=== PATIENT | female | born 1975 | race Two or more races ===

== ENCOUNTER 2021-01-28 14:36 | Inpatient (IN) | payer BC, OTHER ==
[~2021-01-28] VITALS: Ht 172.7 cm; Wt 104.0 kg
[2021-01-28] MEDS ORDERED: methylPREDNISolone SOD SUCC 125 MG/2 ML VL IV ONE (15:00)
[2021-01-28 17:08] LABS: Basophils # (auto) 0 10 ^3/uL (0-0.2); Basophils % (auto) 0.2 % (0.0-2.0); Eosinophils # (auto) 0 10 ^3/uL (0-0.8); Eosinophils % (auto) 0.1 % (0.0-7.0); Hematocrit 35.7 % (36.0-46.0); Hemoglobin 12.5 g/dL (12.2-16.2); Lymphocytes # (auto) 1.6 10 ^3/uL (0.4-5.4); Lymphocytes % (auto) 12.4 % (10.0-50.0); Mean Corpuscular Hemoglobin 29.1 pg (28.0-32.0); Mean Corpuscular Hgb Conc. 34.9 g/dL (32.0-36.0); Mean Corpuscular Volume 83.3 fL (80.0-100.0); Monocytes # (auto) 0.7 10 ^3/uL (0-1.3); Monocytes % (auto) 5.6 % (0.0-12.0); Neutrophils # (auto) 10.2 10 ^3/uL (1.6-8.6); Neutrophils % (auto) 81.7 % (37.0-80.0); Nucleated Red Blood Cells % 0.1 %; Red Blood Cells 4.29 10^6/uL (4.0-5.20); Red Cell Distribution Width 13.5 % (11.8-14.3); White Blood Cell 12.6 10^3/uL (4.4-10.8)
[2021-01-28 17:17] LABS: Alanine Aminotransferase 65 U/L (13-56); Albumin 3.2 g/dL (3.4-5.0); Anion Gap 11 (5-15); Aspartate Aminotransferase 83 U/L (15-37); BUN/Creatinine Ratio 9.2; Blood Urea Nitrogen 8 mg/dL (7-18); Calcium 7.6 mg/dL (8.5-10.1); Carbon Dioxide 22 mmol/L (21-32); Chloride 98 mmol/L (98-107); GFR African American 90 mL/min; GFR Non-African American 74 mL/min; Glucose 125 mg/dL (74-106); Magnesium 1.9 mg/dL (1.6-2.6); Potassium 3.6 mmol/L (3.5-5.1); Sodium 131 mmol/L (136-145)
[2021-01-28 17:26] LABS: Alkaline Phosphatase 118 U/L (45-117); Bilirubin, Total 0.4 mg/dL (0.2-1.0); Total Protein 8.2 g/dL (6.4-8.2)
[2021-01-28] MEDS ORDERED: NITROGLYCERIN 0.4 MG SL TAB SL PRN (19:45)
[2021-01-28] MEDS ORDERED: ACETAMINOPHEN 500 MG TAB PO PRN (19:45)
[2021-01-28] MEDS ORDERED: REMDESIVIR PER PHARMACY 0 ML IV SCH (19:45)
[2021-01-28] MEDS ORDERED: ONDANSETRON HCL 4 MG/2 ML VIAL IV PRN (19:45)
[2021-01-28] MEDS ORDERED: MORPHINE SULF INJ 2 MG/ML SYRINGE 1ML IV PRN (19:45)
[2021-01-28] MEDS ORDERED: FUROSEMIDE 20 MG/2 ML VIAL IV ONE (20:00)
[2021-01-28] MEDS: cefTRIAXone 1GM/50ML D5W 50 ML IV SCH (20:28)
[2021-01-28] MEDS: ASCORBIC ACID 1,000 MG TAB PO SCH (20:29)
[2021-01-28] MEDS: ZINC SULFATE 220mg CAP or TAB PO SCH (20:29)
[2021-01-28] MEDS: CHOLECALCIFEROL (VITD3) 2,000 UNIT CAP/TAB PO SCH (20:29)
[2021-01-28] MEDS ORDERED: AZITHROMYCIN 500MG/ 250ML 250 ML IV SCH (20:30)
[2021-01-28] MEDS ORDERED: REMDESIVIR 200 MG in NS 210ml LOADING DOSE ADULT IV ONE (20:30)
[2021-01-28] MEDS: APIXABAN 5 MG TAB PO SCH (22:00)
[2021-01-28] MEDS: ALBUTEROL SULF HFA 90MCG INH 200DOSE IN PRN (22:04)
[2021-01-28] MEDS: BUDESONIDE (INHALATION) 180 MCG IH IN SCH (22:04)
[2021-01-28 22:30] VITALS: BP 139/79
[2021-01-28 23:35] VITALS: BP 133/76
[2021-01-29] MEDS: AZITHROMYCIN 500MG/ 250ML 250 ML IV SCH ×2 (00:15→10:12)
[2021-01-29] MEDS ORDERED: METF-370 PO (01:12)
[2021-01-29] MEDS ORDERED: ROSU10TA16 PO (01:12)
[2021-01-29] MEDS ORDERED: LOSA-69 PO (01:12)
[2021-01-29] MEDS ORDERED: AMLO-489 PO (01:12)
[2021-01-29] MEDS ORDERED: DEXTROSE (50%) 50ML SYRG IV PRN (02:00)
[2021-01-29 05:00] VITALS: BP 127/74
[2021-01-29] MEDS: ACCU-CHEK COMFORT CURVE STRIP VI SCH ×4 (06:21→23:45)
[2021-01-29] MEDS: InsuLIN REG 1unit/0.01ml Soln (100units/ml) SC SCH ×4 (06:24→23:49)
[2021-01-29 07:25] LABS: Potassium 3.9 mmol/L (3.5-5.1)
[2021-01-29 07:35] LABS: Albumin 2.7 g/dL (3.4-5.0); BUN/Creatinine Ratio 12.1; Bilirubin, Total 0.3 mg/dL (0.2-1.0)
[2021-01-29 08:00] VITALS: BP 130/73
[2021-01-29] MEDS: BUDESONIDE (INHALATION) 180 MCG IH IN SCH ×2 (08:14→22:29)
[2021-01-29] MEDS: ALBUTEROL SULF HFA 90MCG INH 200DOSE IN PRN ×2 (08:14→22:29)
[2021-01-29 09:00] VITALS: BP 130/73
[2021-01-29] MEDS: cefTRIAXone 1GM/50ML D5W 50 ML IV SCH (09:58)
[2021-01-29] MEDS: APIXABAN 5 MG TAB PO SCH ×2 (10:00→22:00)
[2021-01-29] MEDS: DexAMETHasone SOD PHOS 10MG/1ML VIAL INJ IV SCH (10:12)
[2021-01-29] MEDS: ZINC SULFATE 220mg CAP or TAB PO SCH (10:13)
[2021-01-29] MEDS: CHOLECALCIFEROL (VITD3) 2,000 UNIT CAP/TAB PO SCH (10:14)
[2021-01-29] MEDS: ASCORBIC ACID 1,000 MG TAB PO SCH (10:14)
[2021-01-29] MEDS: IVERMECTIN 3 MG TAB PO SCH (10:14)
[2021-01-29 13:00] VITALS: BP 155/82
[2021-01-29] MEDS: REMDESIVIR 100mg 100 MG in SODIUM CHL 0.9% 230 ML IV SCH (16:21)
[2021-01-29 17:00] VITALS: BP 138/82
[2021-01-29 22:00] VITALS: BP 142/81
[2021-01-29] MEDS: MORPHINE SULF INJ 2 MG/ML SYRINGE 1ML IV PRN (22:23)
[2021-01-30] MEDS: PROMETHAZINE-DM 5 ML ORAL SYRUP PO PRN (03:00)
[2021-01-30 05:00] VITALS: BP 118/78
[2021-01-30] MEDS: ACCU-CHEK COMFORT CURVE STRIP VI SCH ×3 (05:36→17:43)
[2021-01-30] MEDS: InsuLIN REG 1unit/0.01ml Soln (100units/ml) SC SCH ×3 (05:42→17:44)
[2021-01-30 06:23] LABS: Hematocrit 36.9 % (36.0-46.0); Hemoglobin 12.4 g/dL (12.2-16.2); Mean Corpuscular Hemoglobin 28.2 pg (28.0-32.0); Mean Corpuscular Hgb Conc. 33.7 g/dL (32.0-36.0); Mean Corpuscular Volume 83.7 fL (80.0-100.0); Red Cell Distribution Width 13.6 % (11.8-14.3); White Blood Cell 11.8 10^3/uL (4.4-10.8)
[2021-01-30 06:45] LABS: Band Neutrophils % (manual) 0; Basophils % (manual) 0 (0.0-2.0); Blast Cells 0; Calcium 8.2 mg/dL (8.5-10.1); Eosinophils % (manual) 0 (0-7); Metamyelocytes % 0; Myelocytes % 0; Potassium 3.4 mmol/L (3.5-5.1); Promyelocytes % 0; Reactive Lymphocytes 0
[2021-01-30] MEDS: ALBUTEROL SULF HFA 90MCG INH 200DOSE IN PRN ×2 (06:53→22:33)
[2021-01-30] MEDS: BUDESONIDE (INHALATION) 180 MCG IH IN SCH ×2 (06:53→22:33)
[2021-01-30 06:56] LABS: BUN/Creatinine Ratio 17.4; CRP High Sensitivity 7.63 mg/dL (< 0.3)
[2021-01-30 09:00] VITALS: BP 122/78
[2021-01-30 10:24] LABS: Lymphocytes % (manual) 19 (10.0-50.0); Monocytes % (manual) 3 (0-12)
[2021-01-30] MEDS ORDERED: IOHEXOL 350 MG/ML 100ML IJ ONE (11:08)
[2021-01-30] MEDS: cefTRIAXone 1GM/50ML D5W 50 ML IV SCH (11:16)
[2021-01-30] MEDS: AZITHROMYCIN 500MG/ 250ML 250 ML IV SCH (11:16)
[2021-01-30] MEDS: DexAMETHasone SOD PHOS 10MG/1ML VIAL INJ IV SCH (11:16)
[2021-01-30] MEDS: ZINC SULFATE 220mg CAP or TAB PO SCH (11:16)
[2021-01-30] MEDS: APIXABAN 5 MG TAB PO SCH ×2 (11:16→22:28)
[2021-01-30] MEDS: CHOLECALCIFEROL (VITD3) 2,000 UNIT CAP/TAB PO SCH (11:17)
[2021-01-30] MEDS: IVERMECTIN 3 MG TAB PO SCH (11:17)
[2021-01-30] MEDS: ASCORBIC ACID 1,000 MG TAB PO SCH (11:17)
[2021-01-30] MEDS ORDERED: POTASSIUM CHL 20 Meq TABLET PO ONE (12:45)
[2021-01-30 13:00] VITALS: BP 132/75
[2021-01-30] MEDS: REMDESIVIR 100mg 100 MG in SODIUM CHL 0.9% 230 ML IV SCH (15:47)
[2021-01-30 17:00] VITALS: BP 136/72
[2021-01-30 22:00] VITALS: BP 122/72
[2021-01-31] MEDS: MORPHINE SULF INJ 2 MG/ML SYRINGE 1ML IV PRN (00:20)
[2021-01-31] MEDS: ACCU-CHEK COMFORT CURVE STRIP VI SCH ×5 (00:52→23:58)
[2021-01-31] MEDS: InsuLIN REG 1unit/0.01ml Soln (100units/ml) SC SCH ×4 (00:53→17:47)
[2021-01-31 05:00] VITALS: BP 144/79
[2021-01-31 06:39] LABS: Hematocrit 34.8 % (36.0-46.0); Hemoglobin 11.7 g/dL (12.2-16.2); Mean Corpuscular Hemoglobin 28.4 pg (28.0-32.0); Mean Corpuscular Hgb Conc. 33.4 g/dL (32.0-36.0); Mean Corpuscular Volume 85.1 fL (80.0-100.0); Red Cell Distribution Width 13.7 % (11.8-14.3); White Blood Cell 11.8 10^3/uL (4.4-10.8)
[2021-01-31 06:54] LABS: Band Neutrophils % (manual) 0; Basophils % (manual) 0 (0.0-2.0); Blast Cells 0; Eosinophils % (manual) 0 (0-7); Metamyelocytes % 0; Myelocytes % 0; Promyelocytes % 0; Reactive Lymphocytes 0
[2021-01-31 06:59] LABS: Potassium 3.7 mmol/L (3.5-5.1)
[2021-01-31] MEDS: BUDESONIDE (INHALATION) 180 MCG IH IN SCH ×2 (07:21→22:58)
[2021-01-31] MEDS: ALBUTEROL SULF HFA 90MCG INH 200DOSE IN PRN ×2 (07:21→23:31)
[2021-01-31 07:23] LABS: CRP High Sensitivity 2.73 mg/dL (< 0.3); Calcium 8.3 mg/dL (8.5-10.1)
[2021-01-31 07:32] LABS: Lymphocytes % (manual) 11 (10.0-50.0); Monocytes % (manual) 15 (0-12)
[2021-01-31 09:00] VITALS: BP 133/71
[2021-01-31] MEDS: cefTRIAXone 1GM/50ML D5W 50 ML IV SCH (10:23)
[2021-01-31] MEDS: APIXABAN 5 MG TAB PO SCH ×2 (10:23→22:56)
[2021-01-31] MEDS: DexAMETHasone SOD PHOS 10MG/1ML VIAL INJ IV SCH (10:23)
[2021-01-31] MEDS: IVERMECTIN 3 MG TAB PO SCH (10:23)
[2021-01-31] MEDS: ZINC SULFATE 220mg CAP or TAB PO SCH (10:23)
[2021-01-31] MEDS: CHOLECALCIFEROL (VITD3) 2,000 UNIT CAP/TAB PO SCH (10:24)
[2021-01-31] MEDS: ASCORBIC ACID 1,000 MG TAB PO SCH (10:24)
[2021-01-31] MEDS ORDERED: PROMETHAZINE HCL 25 MG/ML 1ML IV PRN (10:45)
[2021-01-31] MEDS: AZITHROMYCIN 500MG/ 250ML 250 ML IV SCH (11:53)
[2021-01-31 13:00] VITALS: BP 129/85
[2021-01-31] MEDS: REMDESIVIR 100mg 100 MG in SODIUM CHL 0.9% 230 ML IV SCH (15:54)
[2021-01-31 17:00] VITALS: BP 143/80
[2021-01-31 21:21] VITALS: BP 143/80
[2021-01-31 22:00] VITALS: BP 145/81
[2021-02-01] MEDS: InsuLIN REG 1unit/0.01ml Soln (100units/ml) SC SCH ×5 (00:03→23:13)
[2021-02-01 05:00] VITALS: BP 149/89
[2021-02-01] MEDS: ACCU-CHEK COMFORT CURVE STRIP VI SCH ×4 (06:39→23:12)
[2021-02-01] MEDS: ALBUTEROL SULF HFA 90MCG INH 200DOSE IN PRN ×2 (07:16→22:53)
[2021-02-01] MEDS: BUDESONIDE (INHALATION) 180 MCG IH IN SCH ×2 (07:16→21:45)
[2021-02-01 08:58] VITALS: BP 145/76
[2021-02-01 11:35] LABS: Hematocrit 36.9 % (36.0-46.0); Hemoglobin 12.7 g/dL (12.2-16.2); Mean Corpuscular Hgb Conc. 34.5 g/dL (32.0-36.0); Mean Corpuscular Volume 83.9 fL (80.0-100.0); Red Cell Distribution Width 13.6 % (11.8-14.3); White Blood Cell 14.2 10^3/uL (4.4-10.8)
[2021-02-01 11:50] LABS: BUN/Creatinine Ratio 16.9; Calcium 8.8 mg/dL (8.5-10.1); Potassium 3.9 mmol/L (3.5-5.1)
[2021-02-01 11:59] LABS: CRP High Sensitivity 6.71 mg/dL (< 0.3)
[2021-02-01 12:09] LABS: Basophils % (manual) 0 (0.0-2.0); Blast Cells 0; Eosinophils % (manual) 0 (0-7); Promyelocytes % 0; Reactive Lymphocytes 0
[2021-02-01 12:42] LABS: Band Neutrophils % (manual) 2; Lymphocytes % (manual) 13 (10.0-50.0); Metamyelocytes % 1; Monocytes % (manual) 5 (0-12); Myelocytes % 1
[2021-02-01 13:00] VITALS: BP 151/90
[2021-02-01] MEDS: AZITHROMYCIN 500MG/ 250ML 250 ML IV SCH (13:21)
[2021-02-01] MEDS: cefTRIAXone 1GM/50ML D5W 50 ML IV SCH (13:21)
[2021-02-01] MEDS: ZINC SULFATE 220mg CAP or TAB PO SCH (13:21)
[2021-02-01] MEDS: DexAMETHasone SOD PHOS 10MG/1ML VIAL INJ IV SCH (13:21)
[2021-02-01] MEDS: APIXABAN 5 MG TAB PO SCH ×2 (13:21→23:06)
[2021-02-01] MEDS: CHOLECALCIFEROL (VITD3) 2,000 UNIT CAP/TAB PO SCH (13:22)
[2021-02-01] MEDS: IVERMECTIN 3 MG TAB PO SCH (13:22)
[2021-02-01] MEDS: ASCORBIC ACID 1,000 MG TAB PO SCH (13:27)
[2021-02-01] MEDS: REMDESIVIR 100mg 100 MG in SODIUM CHL 0.9% 230 ML IV SCH (16:47)
[2021-02-01 17:00] VITALS: BP 159/95
[2021-02-01 22:00] VITALS: BP 153/85
[2021-02-02 05:00] VITALS: BP 145/78
[2021-02-02] MEDS: ACCU-CHEK COMFORT CURVE STRIP VI SCH ×4 (06:07→23:39)
[2021-02-02] MEDS: InsuLIN REG 1unit/0.01ml Soln (100units/ml) SC SCH ×5 (06:08→23:41)
[2021-02-02] MEDS: ALBUTEROL SULF HFA 90MCG INH 200DOSE IN PRN (07:15)
[2021-02-02] MEDS: BUDESONIDE (INHALATION) 180 MCG IH IN SCH ×2 (07:15→23:19)
[2021-02-02 07:29] LABS: Eosinophils # (auto) 0 10 ^3/uL (0-0.8); Mean Corpuscular Hemoglobin 28.5 pg (28.0-32.0); Neutrophils # (auto) 8.4 10 ^3/uL (1.6-8.6); Nucleated Red Blood Cells % 0.1 %; White Blood Cell 11.7 10^3/uL (4.4-10.8)
[2021-02-02 07:31] LABS: Basophils # (auto) 0 10 ^3/uL (0-0.2); Basophils % (auto) 0.3 % (0.0-2.0); Eosinophils % (auto) 0.2 % (0.0-7.0); Hematocrit 35.6 % (36.0-46.0); Hemoglobin 11.9 g/dL (12.2-16.2); Lymphocytes % (auto) 17.2 % (10.0-50.0); Mean Corpuscular Hgb Conc. 33.5 g/dL (32.0-36.0); Mean Corpuscular Volume 85.1 fL (80.0-100.0); Monocytes # (auto) 1.3 10 ^3/uL (0-1.3); Monocytes % (auto) 10.7 % (0.0-12.0); Neutrophils % (auto) 71.6 % (37.0-80.0); Red Blood Cells 4.18 10^6/uL (4.0-5.20); Red Cell Distribution Width 13.4 % (11.8-14.3)
[2021-02-02 07:51] LABS: Potassium 4.1 mmol/L (3.5-5.1)
[2021-02-02] MEDS: cefTRIAXone 1GM/50ML D5W 50 ML IV SCH (08:09)
[2021-02-02 08:10] LABS: BUN/Creatinine Ratio 25.4; CRP High Sensitivity 6.32 mg/dL (< 0.3); Calcium 9.1 mg/dL (8.5-10.1)
[2021-02-02 09:00] VITALS: BP 139/81
[2021-02-02] MEDS: APIXABAN 5 MG TAB PO SCH ×2 (09:14→21:28)
[2021-02-02] MEDS: DexAMETHasone SOD PHOS 10MG/1ML VIAL INJ IV SCH (09:14)
[2021-02-02] MEDS: ZINC SULFATE 220mg CAP or TAB PO SCH (09:14)
[2021-02-02] MEDS: IVERMECTIN 3 MG TAB PO SCH (09:15)
[2021-02-02] MEDS: ASCORBIC ACID 1,000 MG TAB PO SCH (09:15)
[2021-02-02] MEDS: CHOLECALCIFEROL (VITD3) 2,000 UNIT CAP/TAB PO SCH (09:15)
[2021-02-02 13:00] VITALS: BP 143/71
[2021-02-02 17:00] VITALS: BP 144/70
[2021-02-02 21:45] VITALS: BP 153/78
[2021-02-03] MEDS: ALBUTEROL SULF HFA 90MCG INH 200DOSE IN PRN ×3 (00:10→20:10)
[2021-02-03 05:00] VITALS: BP 141/70
[2021-02-03] MEDS: ACCU-CHEK COMFORT CURVE STRIP VI SCH ×3 (06:00→16:28)
[2021-02-03] MEDS: InsuLIN REG 1unit/0.01ml Soln (100units/ml) SC SCH ×3 (06:05→16:28)
[2021-02-03] MEDS: BUDESONIDE (INHALATION) 180 MCG IH IN SCH ×2 (07:12→20:10)
[2021-02-03 07:14] LABS: Eosinophils # (auto) 0.1 10 ^3/uL (0-0.8); Monocytes # (auto) 1.1 10 ^3/uL (0-1.3); Nucleated Red Blood Cells % 0.1 %
[2021-02-03 07:17] LABS: Basophils # (auto) 0.1 10 ^3/uL (0-0.2); Basophils % (auto) 0.9 % (0.0-2.0); Eosinophils % (auto) 0.9 % (0.0-7.0); Hematocrit 36.3 % (36.0-46.0); Hemoglobin 12.2 g/dL (12.2-16.2); Lymphocytes # (auto) 2.5 10 ^3/uL (0.4-5.4); Lymphocytes % (auto) 20.4 % (10.0-50.0); Mean Corpuscular Hemoglobin 28.6 pg (28.0-32.0); Mean Corpuscular Hgb Conc. 33.6 g/dL (32.0-36.0); Mean Corpuscular Volume 85.3 fL (80.0-100.0); Monocytes % (auto) 9.1 % (0.0-12.0); Neutrophils # (auto) 8.6 10 ^3/uL (1.6-8.6); Neutrophils % (auto) 68.7 % (37.0-80.0); Red Blood Cells 4.26 10^6/uL (4.0-5.20); Red Cell Distribution Width 13.7 % (11.8-14.3); White Blood Cell 12.5 10^3/uL (4.4-10.8)
[2021-02-03 07:27] LABS: BUN/Creatinine Ratio 23.7; Calcium 9.1 mg/dL (8.5-10.1); Potassium 4.4 mmol/L (3.5-5.1)
[2021-02-03 07:35] LABS: CRP High Sensitivity 2.86 mg/dL (< 0.3)
[2021-02-03] MEDS: DexAMETHasone SOD PHOS 10MG/1ML VIAL INJ IV SCH (08:29)
[2021-02-03] MEDS: cefTRIAXone 1GM/50ML D5W 50 ML IV SCH (08:29)
[2021-02-03] MEDS: APIXABAN 5 MG TAB PO SCH ×2 (08:30→21:15)
[2021-02-03] MEDS: ZINC SULFATE 220mg CAP or TAB PO SCH (08:30)
[2021-02-03] MEDS: ASCORBIC ACID 1,000 MG TAB PO SCH (08:30)
[2021-02-03] MEDS: CHOLECALCIFEROL (VITD3) 2,000 UNIT CAP/TAB PO SCH (08:30)
[2021-02-03 09:00] VITALS: BP 131/82
[2021-02-03 13:00] VITALS: BP 153/82
[2021-02-03 20:00] VITALS: BP 137/81
[2021-02-03 22:00] VITALS: BP 137/81
[2021-02-03 23:46] VITALS: BP 153/82
[2021-02-04] MEDS: ACCU-CHEK COMFORT CURVE STRIP VI SCH ×4 (00:09→16:25)
[2021-02-04] MEDS: InsuLIN REG 1unit/0.01ml Soln (100units/ml) SC SCH ×4 (00:12→16:24)
[2021-02-04 05:00] VITALS: BP 137/73
[2021-02-04 07:01] LABS: Hematocrit 36.4 % (36.0-46.0); Hemoglobin 12.3 g/dL (12.2-16.2); Mean Corpuscular Hemoglobin 28.2 pg (28.0-32.0); Mean Corpuscular Hgb Conc. 33.8 g/dL (32.0-36.0); Mean Corpuscular Volume 83.5 fL (80.0-100.0); Red Blood Cells 4.36 10^6/uL (4.0-5.20); Red Cell Distribution Width 13.4 % (11.8-14.3); White Blood Cell 11.2 10^3/uL (4.4-10.8)
[2021-02-04 07:06] LABS: Basophils % (manual) 0 (0.0-2.0); Blast Cells 0; Promyelocytes % 0; Reactive Lymphocytes 0
[2021-02-04 07:10] LABS: Calcium 9.3 mg/dL (8.5-10.1); Potassium 4.4 mmol/L (3.5-5.1)
[2021-02-04 07:23] LABS: BUN/Creatinine Ratio 26.8; CRP High Sensitivity 1.44 mg/dL (< 0.3)
[2021-02-04] MEDS: ALBUTEROL SULF HFA 90MCG INH 200DOSE IN PRN ×2 (07:30→21:27)
[2021-02-04] MEDS: BUDESONIDE (INHALATION) 180 MCG IH IN SCH ×2 (07:31→21:27)
[2021-02-04 08:19] LABS: Band Neutrophils % (manual) 4; Eosinophils % (manual) 2 (0-7); Lymphocytes % (manual) 26 (10.0-50.0); Metamyelocytes % 4; Monocytes % (manual) 5 (0-12); Myelocytes % 2
[2021-02-04] MEDS: DexAMETHasone SOD PHOS 10MG/1ML VIAL INJ IV SCH (08:33)
[2021-02-04] MEDS: ZINC SULFATE 220mg CAP or TAB PO SCH (08:33)
[2021-02-04] MEDS: APIXABAN 5 MG TAB PO SCH ×2 (08:33→21:52)
[2021-02-04] MEDS: ASCORBIC ACID 1,000 MG TAB PO SCH (08:33)
[2021-02-04] MEDS: CHOLECALCIFEROL (VITD3) 2,000 UNIT CAP/TAB PO SCH (08:34)
[2021-02-04 08:50] VITALS: BP 124/72
[2021-02-04 12:50] VITALS: BP 127/81
[2021-02-04 17:00] VITALS: BP 130/71
[2021-02-04 22:00] VITALS: BP 113/67
[2021-02-05] MEDS: ACCU-CHEK COMFORT CURVE STRIP VI SCH ×5 (00:03→23:32)
[2021-02-05] MEDS: InsuLIN REG 1unit/0.01ml Soln (100units/ml) SC SCH ×5 (00:03→23:35)
[2021-02-05 05:00] VITALS: BP 127/68
[2021-02-05 06:35] LABS: Hematocrit 34.7 % (36.0-46.0); Mean Corpuscular Hemoglobin 28.8 pg (28.0-32.0); Mean Corpuscular Hgb Conc. 34.4 g/dL (32.0-36.0); Mean Corpuscular Volume 83.6 fL (80.0-100.0); Red Blood Cells 4.16 10^6/uL (4.0-5.20); Red Cell Distribution Width 13.4 % (11.8-14.3); White Blood Cell 11.6 10^3/uL (4.4-10.8)
[2021-02-05 07:00] LABS: Basophils % (manual) 0 (0.0-2.0); Blast Cells 0; Eosinophils % (manual) 0 (0-7); Metamyelocytes % 0; Promyelocytes % 0; Reactive Lymphocytes 0
[2021-02-05 07:03] LABS: BUN/Creatinine Ratio 26.8; CRP High Sensitivity 0.76 mg/dL (< 0.3); Calcium 9.1 mg/dL (8.5-10.1); Magnesium 2.2 mg/dL (1.6-2.6)
[2021-02-05] MEDS: ALBUTEROL SULF HFA 90MCG INH 200DOSE IN PRN ×2 (07:04→22:24)
[2021-02-05] MEDS: BUDESONIDE (INHALATION) 180 MCG IH IN SCH ×2 (07:04→22:24)
[2021-02-05 07:40] LABS: Band Neutrophils % (manual) 5; Lymphocytes % (manual) 23 (10.0-50.0); Monocytes % (manual) 5 (0-12); Myelocytes % 1
[2021-02-05 09:00] VITALS: BP 118/70
[2021-02-05] MEDS: APIXABAN 5 MG TAB PO SCH ×2 (09:19→21:28)
[2021-02-05] MEDS: ZINC SULFATE 220mg CAP or TAB PO SCH (09:19)
[2021-02-05] MEDS: DexAMETHasone SOD PHOS 10MG/1ML VIAL INJ IV SCH (09:19)
[2021-02-05] MEDS: ASCORBIC ACID 1,000 MG TAB PO SCH (09:20)
[2021-02-05] MEDS: CHOLECALCIFEROL (VITD3) 2,000 UNIT CAP/TAB PO SCH (09:20)
[2021-02-05 17:00] VITALS: BP 113/72
[2021-02-05 22:00] VITALS: BP 137/75
[2021-02-06 05:00] VITALS: BP 146/72
[2021-02-06] MEDS: ACCU-CHEK COMFORT CURVE STRIP VI SCH ×2 (06:06→12:27)
[2021-02-06] MEDS: InsuLIN REG 1unit/0.01ml Soln (100units/ml) SC SCH ×2 (06:14→12:29)
[2021-02-06] MEDS: BUDESONIDE (INHALATION) 180 MCG IH IN SCH (07:07)
[2021-02-06] MEDS: ALBUTEROL SULF HFA 90MCG INH 200DOSE IN PRN (07:07)
[2021-02-06 08:30] VITALS: BP 125/68
[2021-02-06] MEDS: ASCORBIC ACID 1,000 MG TAB PO SCH (08:52)
[2021-02-06] MEDS: CHOLECALCIFEROL (VITD3) 2,000 UNIT CAP/TAB PO SCH (08:52)
[2021-02-06] MEDS: APIXABAN 5 MG TAB PO SCH (08:52)
[2021-02-06] MEDS: ZINC SULFATE 220mg CAP or TAB PO SCH (08:52)
[2021-02-06] MEDS: DexAMETHasone SOD PHOS 10MG/1ML VIAL INJ IV SCH (08:52)
[2021-02-06] MEDS: PROMETHAZINE-DM 5 ML ORAL SYRUP PO PRN (09:02)
[2021-02-06 12:30] VITALS: BP 145/73
== END 2021-02-06 14:00 | disposition home or self-care (01) | DRG 177 ==
LOC: EDBD 14:36 → ER 14:39 → TELE 19:36 → TELE-EAST 21:51
PROVIDERS: ADMIT Nurse Practitioner Acute Care; ATTEND Internal Medicine
PROC: XW033E5 Introduction of Remdesivir Anti-infective into Peripheral Vein, Percutaneous Approach, New Technology Group 5 (ICD-10-PCS; principal; 2021-01-28)
PROC: 05HB33Z Insertion of Infusion Device into Right Basilic Vein, Percutaneous Approach (ICD-10-PCS; 2021-01-31)
PROC: B54MZZA Ultrasonography of Right Upper Extremity Veins, Guidance (ICD-10-PCS; 2021-01-31)
DX: U07.1 COVID-19 (principal); J12.82 Pneumonia due to coronavirus disease 2019; J96.01 Acute respiratory failure with hypoxia; E87.1 Hypo-osmolality and hyponatremia; J98.11 Atelectasis; E11.9 Type 2 diabetes mellitus without complications; E66.01 Morbid (severe) obesity due to excess calories; E78.5 Hyperlipidemia, unspecified; G47.00 Insomnia, unspecified; I10 Essential (primary) hypertension; D89.839 Cytokine release syndrome, grade unspecified; J45.909 Unspecified asthma, uncomplicated; Z79.01 Long term (current) use of anticoagulants; Z79.4 Long term (current) use of insulin; Z83.3 Family history of diabetes mellitus; Z86.711 Personal history of pulmonary embolism; Z90.710 Acquired absence of both cervix and uterus; Z88.1 Allergy status to other antibiotic agents; Z88.5 Allergy status to narcotic agent; Z90.49 Acquired absence of other specified parts of digestive tract; Z68.35 Body mass index [BMI] 35.0-35.9, adult
CPT/HCPCS: 36415; 36600; 71045; 71275; 80048; 80053; 82728; 82805; 82962; 83605; 83735; 83880; 84484; 85007; 85025; 85027; 85379; 86141; 87040; 87426; 93005; 93970; 94640; 96365; 96367; 96375; 97110; 97116; 97530; G0378; J0696; J1100; J1815; J2405